=== PATIENT | male | born 1985 | race Caucasian/White ===

== ENCOUNTER 2018-05-31 06:53 | Emergency (ER) | payer SELFPAY ==
[2018-05-31 06:53] VITALS: BMI 30.3
[2018-05-31 07:31] VITALS: BP 0/0; RESP 0; O2SAT 0
--- NOTE | 2018-05-31 07:35 | ED.VISSUMM ---
- ER Visit Summary Date of Service: 05/31/18 Chief Complaint: Cardiac arrest History of Present Illness: The patient is a 33 M who was found unresponsive on the floor the family living room this morning. Family states that 6-8 months ago he moved in with them noting that he was having an issue with heroin. 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 They note that last night around 1930 hrs. he went to go see his girlfriend and then returned home somewhere between 2300 hours and 0000. He was found early this morning. EMS states that his jaw was stiff. They noted lividity and cool to the touch and presenting rhythm was asystole. ACLS was given in route. Left tibial IO placed. Physical Examination: Pulses absent. He has bagged respirations. CPR is being administered through mechanical device Pupils are fixed. There is lividity. Body is cold and pale. There is maroon-like emesis on the face. There is a left tibial IO present. There is no palpable pulse. No audible heart sounds with auscultation. Patient's jaw is in rigor as is the right arm and left leg Emergency Department Course and Treatment: Patient had no cardiac activity and ultrasound was in asystole on the monitor. He has signs of rigor and he was pronounced at 0655 hours. Impression: 1. Cardiac arrest This note was generated with [employer] dictation software. It may contain incorrect words, spelling, and punctuation that were not noted in review of the chart prior to signing ED Disposition - Plan for ED Patient: Chief Complaint: CPR Referrals: NOT,DEFINED [Primary Care Provider] -
--- NOTE | 2018-05-31 12:41 | ED.RN ---
[facility] PRESENT TO [facility]
== END 2018-05-31 12:42 | disposition home or self-care (01) ==
PROVIDERS: Emergency Provider Emergency Medicine
DX: I46.9 Cardiac arrest, cause unspecified (principal)
CPT/HCPCS: 92950; J7030